=== PATIENT | female | born 1990 | race African-American/Black ===

== ENCOUNTER 2022-09-07 06:30 | Inpatient (IN) | payer OTHER ==
[2022-09-07 08:12] LABS: INR 0.98 (0.83-1.09); PROTHROMBIN TIME (PATIENT) 11.3 SEC (9.7-13.0)
[2022-09-07 08:15] LABS: ACTIVATED PTT 27.6 SECONDS (25.2-36.5); BASO % 0.2 % (0-2.0); HEMATOCRIT 25.6 % (32.4-45.2); HEMOGLOBIN 7.9 GM/dL (10.7-15.3); LYMPH % 9.1 % (8-40); MCH 20.4 pg (25.7-33.7); MCHC 30.9 g/dl (32.0-36.0); MEAN CELL VOLUME 66.1 fl (80-96); MEAN PLT VOLUME 7.5 fl (7.5-11.1); MONO % 5.8 % (3.8-10.2); NEUT % 84.9 % (42.8-82.8); PLATELET COUNT 387 10^3/uL (134-434); RBC 3.88 M/mm3 (3.60-5.2); RDW 20.6 % (11.6-15.6); WHITE BLOOD COUNT 13.9 K/mm3 (4.0-10.0)
[2022-09-07] MEDS ORDERED: BUTORPHANOL TARTRATE 1 MG/ML VIAL IVPB PRN (08:16)
[2022-09-07] MEDS ORDERED: PROMETHAZINE HCL 25 MG/1 ML VIAL IVPUSH ONE (08:16)
[2022-09-07 08:17] LABS: CALCIUM 8.7 mg/dL (8.5-10.1)
[2022-09-07 08:18] LABS: BLOOD UREA NITROGEN 7.6 mg/dL (7-18)
[2022-09-07] MEDS ORDERED: AMPICILLIN - 2 GM in SODIUM CHLORIDE 100 ML IVPB ONE (08:19)
[2022-09-07 08:21] LABS: CREATININE 0.7 mg/dL (0.55-1.3)
[2022-09-07 09:24] VITALS: BMI 30.1
[2022-09-07 09:29] LABS: ANISOCYTOSIS 3+; MACROCYTOSIS 0
[2022-09-07] MEDS: ELECTROLYTE-148 SOLN 1,000 ML IV SCH ×2 (10:50→18:20)
[2022-09-07] MEDS ORDERED: PROMETHAZINE HCL 25 MG/1 ML VIAL ONE (10:58)
[2022-09-07] MEDS ORDERED: BUTORPHANOL TARTRATE 2 MG/ML VIAL ONE (10:58)
[2022-09-07] MEDS ORDERED: OXYTOCIN 20 UNITS in 0.9% NS 20 UNIT/1,000 ML INFUS.BAG IV ONE (11:27)
[2022-09-07 13:19] LABS: HIV INTERPRETATION NEGATIVE (NEGATIVE)
[2022-09-07 13:47] LABS: COCAINE, UR NEGATIVE (NEGATIVE); URINE AMPHETAMINES NEGATIVE (NEGATIVE)
[2022-09-07 13:48] LABS: METHADONE, UR NEGATIVE (NEGATIVE); OPIATES, URI NEGATIVE (NEGATIVE); PHENCYCLIDINE,URINE NEGATIVE (NEGATIVE); URINE BARBITURATES NEGATIVE (NEGATIVE); URINE BENZODIAZEPINES NEGATIVE (NEGATIVE)
[2022-09-07] MEDS ORDERED: OXYTOCIN 30 UNITS in 0.9% NS 30 UNIT/500 ML INFUS.BAG IVPB ONE (16:50)
[2022-09-07] MEDS ORDERED: OXYTOCIN 30 UNITS in 0.9% NS 30 UNIT/500 ML INFUS.BAG IVPB SCH (17:00)
[2022-09-07] MEDS: AMPICILLIN - 1 GM in SODIUM CHLORIDE 100 ML IVPB SCH ×2 (17:14→17:15)
[2022-09-07] MEDS ORDERED: WITCH HAZEL 50% (TUCKS) 40 PAD/JAR PAD TP PRN (19:59)
[2022-09-07] MEDS ORDERED: BENZOCAINE 28 GM HEMORRHOIDAL OINTMENT TP PRN (19:59)
[2022-09-07] MEDS ORDERED: oxyCODONE HCL 5 MG TABLET PO PRN (19:59)
[2022-09-07] MEDS ORDERED: BENZOCAINE 20% 57 GM BOTTLE TP PRN (19:59)
[2022-09-07] MEDS ORDERED: BISACODYL 10 MG SUPP.RECT RC PRN (19:59)
[2022-09-07] MEDS ORDERED: ACETAMINOPHEN 325 MG TABLET (FP) PO PRN (19:59)
[2022-09-07] MEDS ORDERED: METHYLERGONOVINE MALEATE 0.2 MG/1 ML AMP IM PRN (19:59)
[2022-09-07] MEDS ORDERED: OXYTOCIN 20 UNITS in 0.9% NS 20 UNIT/1,000 ML INFUS.BAG IV SCH (20:00)
[2022-09-07 20:11] LABS: CORD BASE EXCESS -10.2 mmol/L (0-2); CORD HCO3 17.3 mmHg (20-29); CORD PCO2 43.7 mmHg (30-78); CORD pH 7.216 (7.14-7.44)
[2022-09-07 20:21] LABS: CORD HCO3 19.9 mmHg (20-29); CORD pH 7.305 (7.14-7.44)
[2022-09-08] MEDS: IBUPROFEN 600 MG TABLET (FP) PO PRN ×3 (02:10→17:05)
[2022-09-08] MEDS: PRENATAL VITAMINS W/ FOLIC ACID TABLET (FP) PO SCH (09:23)
[2022-09-08] MEDS: FERROUS SO4 325 MG TABLET (FP) PO SCH ×3 (09:23→17:06)
[2022-09-08 09:31] LABS: HEMATOCRIT 20.6 % (32.4-45.2); MCH 20.2 pg (25.7-33.7); MCHC 30.4 g/dl (32.0-36.0); MEAN CELL VOLUME 66.5 fl (80-96); MEAN PLT VOLUME 7.5 fl (7.5-11.1); PLATELET COUNT 320 10^3/uL (134-434); RBC 3.09 M/mm3 (3.60-5.2); RDW 20.5 % (11.6-15.6); WHITE BLOOD COUNT 20.8 K/mm3 (4.0-10.0)
[2022-09-08 09:42] LABS: HEMOGLOBIN 6.3 GM/dL (10.7-15.3)
[2022-09-08 10:09] LABS: ANISOCYTOSIS 3+; MACROCYTOSIS 0
[2022-09-08 12:19] VITALS: RESP 16
[2022-09-08] MEDS ORDERED: SENNOSIDES/DOCUSATE COMBO (SENNA PLUS) TABLET (UD) PO PRN (22:00)
[2022-09-09] MEDS: IBUPROFEN 600 MG TABLET (FP) PO PRN ×2 (00:23→05:36)
[2022-09-09 07:25] LABS: BASO % 0.6 % (0-2.0); EOS % 0.7 % (0-4.5); HEMATOCRIT 29.3 % (32.4-45.2); HEMOGLOBIN 9.3 GM/dL (10.7-15.3); LYMPH % 22.7 % (8-40); MCH 22.5 pg (25.7-33.7); MCHC 31.6 g/dl (32.0-36.0); MEAN PLT VOLUME 7.5 fl (7.5-11.1); MONO % 8.3 % (3.8-10.2); NEUT % 67.7 % (42.8-82.8); PLATELET COUNT 323 10^3/uL (134-434); RBC 4.12 M/mm3 (3.60-5.2); RDW 21.4 % (11.6-15.6); WHITE BLOOD COUNT 17.6 K/mm3 (4.0-10.0)
[2022-09-09] MEDS: FERROUS SO4 325 MG TABLET (FP) PO SCH ×2 (10:48→12:06)
[2022-09-09] MEDS: PRENATAL VITAMINS W/ FOLIC ACID TABLET (FP) PO SCH (10:48)
[2022-09-09 11:33] VITALS: BP 116/72; PULSE 77; TEMP 97.7
== END 2022-09-09 14:50 | disposition home or self-care (01) | DRG 560 ==
LOC: JLDR 06:30 → J3W 22:29
PROVIDERS: ADMIT Obstetrics & Gynecology; ATTEND Obstetrics & Gynecology
PROC: 0W8NXZZ Division of Female Perineum, External Approach (ICD-10-PCS; principal; 2022-09-07)
PROC: 10E0XZZ Delivery of Products of Conception, External Approach (ICD-10-PCS; 2022-09-07)
DX: O48.0 Post-term pregnancy (principal); Z3A.40 40 weeks gestation of pregnancy; O36.63X0 Maternal care for excessive fetal growth, third trimester, not applicable or unspecified; O99.214 Obesity complicating childbirth; E66.9 Obesity, unspecified; O99.02 Anemia complicating childbirth; D64.9 Anemia, unspecified; Z37.0 Single live birth
CPT/HCPCS: 36415; 36430; 36600; 59409; 80048; 80307; 82803; 85025; 85610; 85730; 86780; 86803; 86850; 86900; 86901; 86922; 87389; C9803-CS; P9058; U0003; U0005

== ENCOUNTER 2024-11-07 10:58 | Emergency (ER) | payer OTHER ==
[2024-11-07 11:09] VITALS: BP 102/73; PULSE 67; RESP 20; TEMP 97.6; BMI 23.3
[2024-11-07] MEDS ORDERED: BACITRACIN ZINC 15 GM TUBE TOPICAL OINTMENT ONE (11:46)
[2024-11-07] MEDS: BACITRACIN ZINC 15 GM TUBE TOPICAL OINTMENT TP ONE (11:54)
== END 2024-11-07 12:00 | disposition home or self-care (01) ==
LOC: JERFT 10:58
DX: Z48.02 Encounter for removal of sutures (principal)
CPT/HCPCS: 99281-25